=== PATIENT | female | born 1990 | race Native Hawaiian/Other Pacific Islander ===

== ENCOUNTER 2016-12-17 01:12 | Inpatient (IN) | payer OTHER, MEDICAID ==
[~2016-12-17] VITALS: Ht 175.3 cm; Wt 44.0 kg
[2016-12-17] MEDS ORDERED: Magnesium Hydroxide 10 mL Oral Concentration PO PRN (03:10)
[2016-12-17] MEDS ORDERED: Benzocaine-Menthol Lozenge 2/Pkg PO PRN (03:10)
[2016-12-17] MEDS ORDERED: LORazepam 1 mg Tablet PO PRN ×3 (03:10→15:16)
--- NOTE | 2016-12-17 04:23 | NUR ---
admit note nursing 11-7 this is a 26 year old female who was medically cleared at [facility] where she was evaluated and detained as gravely disabled on 12/16/16 at 2200. has a history of past evaluations and being hospitalized in [facility]. there is a past diagnosis of schizoaffective disorder as well as drug abuse. was at [facility] crisis treatment seeking detox admission and they felt she needed mental health treatment. she arrived to this unit at 0255 by stretcher with security. presented as disorganized, labile, demanding and histrionic at times. physical assessment- denies any acute medical/physical injury/need and none is apparent. is a/o x3, vs- wnl, all- benzropine, negative at [facility], positive for hep c and mrsa, ht- 59" wt- 97 lbs. has some minor scabs on her face and is rather disheveled in appearance. completed most of the admission process before becoming overstimulated and demanding medication. agreed to no self harm, was searched and oriented to room 229. received a snack and 2 mg of ativan po per her request, declining other offered medication. went to bed at 0330 and has appeared to sleep after 0345. dylan Addendum: 12/17/16 at 0530 by ROBEL MAHONEY RN patient was heard to be yelling in her room at 0450. appeared to have had a nightmare without awakening and returned to sleeping calmly. dylan
--- NOTE | 2016-12-17 04:29 | NUR ---
Arrived to unit at 300. Pt very disorganized, labile with flat affect, and jerky moments. Asleep at 345. Pt observed every 15 minutes as ordered.
[2016-12-17] MEDS ORDERED: Haloperidol 5 mg/mL Inj IM PRN (11:55)
--- NOTE | 2016-12-17 12:39 | HP ---
[address] [address] HISTORY AND PHYSICAL PATIENT: VIDA HOFFMAN : 1990 MR#: [id number] ADMIT: 12/17/2016 JOB ID: [id number] IDENTIFICATION: The patient is a 27-year-old single female. She is currently unemployed and living in [facility]. REASON FOR ADMISSION: Client was placed on a 72-hour involuntary treatment hold for grave disability at [facility] for symptoms of psychosis and disorganized thought. HISTORY OF PRESENT ILLNESS: The patient presents today for evaluation and treatment of psychosis. She is complaining of anxiety but is unaware of the psychotic symptoms. I met with her for a brief evaluation and reviewed course and records kept by both [facility] ER as well as [facility] staff. Her main issue at this time is methamphetamine abuse and the resultant psychotic and paranoid symptoms that resulted. Co-occurring issues are homelessness and lack of finances. The patient is a poor historian and I am unable to identify the degree of chronicity or acuteness to her current episode. It appears that she presented to a detox unit on [facility] wanting help sobering up and was so psychotic they sent her to the emergency department. She is currently having symptoms of responding to internal stimuli, paranoid delusions, and somatic delusions (she feels that she is "double "). She also has symptoms of severe disorganized thought and thought lability. She is currently presenting with marked emotional liability, significant cognitive deficits, and severe impairment in judgment, insight, coping, and reality testing. PAST MEDICAL HISTORY: MEDICATIONS: None. ALLERGIES: COGENTIN. ILLNESSES: Hepatitis C. FAMILY MEDICAL HISTORY: Client would not respond. PAST PSYCHIATRIC HISTORY: Client said that she has been hospitalized multiple times in [facility] on the psychiatric unit. PSYCHOSOCIAL HISTORY: Client refused to answer social questions related to , history of trauma. She did state she does not use IV meth; she smokes on a daily basis. She denied suicidal ideation or homicidal ideation. RELATIONSHIP HISTORY: Single. Client states she has 40 children. LEGAL HISTORY: Client denies. PHYSICAL EXAMINATION: Reviewed from [facility] and essentially normal. NEUROLOGICAL EXAMINATION: Normal gait. Normal balance. Oriented to person, place, and date. MENTAL STATUS EXAMINATION: Client disheveled, frail, and thin. She has poor eye contact. Her behavior is lethargic and withdrawn. Attitude: Detached and aloof. Speech: Soft, monotone one-word responses. Mood: Dysphoric. Affect: Congruent, with a recent history of severe liability but at present flat and restricted. Thought process: Client is not able to relate a coherent history. She is unable to appreciate simple or complex abstractions. She appears to be responding to internal stimuli. Thought content: Significant for multiple delusions of a paranoid and somatic nature. Client was sedated but was oriented to person, place, and date. I was unable to test memory or attention. Severe impairment in insight, judgment, impulse control, reality testing, and competence to handle current stressors. LABORATORY: Urine negative. Urine drug screen positive for meth. CBC normal. Liver, electrolytes, thyroid significant for ALT elevated on December 13 at 433 and elevated on December 15, 2016 at 776. AST elevated at 304 on December 13, elevated at 438 on December 15, 2016. She is positive for hepatitis C. IMPRESSION: The patient is a 26-year-old white female who was transferred on an involuntary treatment hold from [facility] after what appears to be a methamphetamine binge. Although she denies IV drug use, she is positive for hepatitis C and has significant elevation in her liver function. She herself is a poor historian due to acute withdrawal from methamphetamine as her urine tox was positive. At this time she is appearing to respond to internal stimuli, has delusions of a paranoid and somatic nature, and is presenting as genuinely labile and disorganized when not overtly sedated. Will need to get more history as the client clears. In the meantime, we will provide a safe and secure environment and try to help restore her thought process. DIAGNOSIS: [place] I: Substance-induced psychotic disorder, methamphetamine. Rule out bipolar mood disorder. Rule out schizophrenia. [place] II: Unknown. [place] III: 1. Hepatitis C positive antigen. 2. Severely elevated liver function tests. [place] IV: Unknown. [place] V: Current Global Assessment of Functioning equal to 25. PLAN: Recommend client be admitted to our unit and be provided with a high degree of safety through the structure and active adult engagement she will receive here. We will have her participate in one-to-one, unit, and group activities focused on improving coping skills and reality based thinking. We will also educate the client about a 12-step program and path to sobriety. Will offer client Seroquel 100 mg h.s. to help with psychotic symptoms and sleep. Will offer p.r.n. trazodone and Ativan as needed. We will recheck liver function tests and consider consult by Internal Medicine if liver function does not improve with hydration, rest, and absence of toxins over the next several days. Anticipate a three-day stay.
[2016-12-17] MEDS: hydrOXYzine Pamoate 25 mg Capsule PO PRN (13:20)
[2016-12-17] MEDS: LORazepam 0.5 mg Tablet PO PRN (13:20)
--- NOTE | 2016-12-17 14:22 | NUR ---
Nursing Day Shift- S- "Can I get more Ativan? What about Temazepam? Do you have Adderall? Yea...I'll take Haldol. I've taken it before. When will the Dr. get me Temazepam? It helps me relax." (At 1300 today.) O- Pt. was asleep from the start of the day shift until just after lunch. She eat 2 bowls of soup and part of a sandwich, then asked for Ativan PRN. 0.5 mg was given at that time. Pt. requested a larger dose. When it was not available, she agreed to Haldol 10 mg. Pt. appears jittery and internally preoccupied with superficial sores on her face, and healed sores on her arms. Her hair was tangled and matted. Pt. was able to confirm her location and place a call to someone she identified as her father, she then showered and applied cream rinse to her hair. She was overheard saying that she would like to get back to drug treatment. Pt. was able to contract for safety on the unit. A- Poor hygiene, slender, sores that appear consistent with heavy Methamphetamine use. Eating and seeking out medications. P- Obtain additional background information.Monitor and suport. Cont. TP
--- NOTE | 2016-12-17 18:28 | NUR ---
[facility] Day Shift Pt maintained behavioral control throughout the shift. Pt affect appears mostly flat. Pt spends most of the shift resting in her room, only entering the dining room in the afternoon to eat lunch, obtain snacks, request medicine, and make phone calls. Pt is appropriate with staff and peers when active on the unit, but is not social. Pt did not attend community meeting or group activities throughout the shift. Pt did not attend breakfast. Pt attended lunch and dinner and ate approx 100% of both meals.
--- NOTE | 2016-12-18 05:21 | NUR ---
nursing, nights, 11-7 s/o- has appeared to sleep after 2129 during q 15 minute assessments. a- no apparent distress. p- monitor behavior/emotional state, quality, times and amount of sleep, use and effect of medication. dylan
[2016-12-18] MEDS: LORazepam 0.5 mg Tablet PO PRN (10:07)
[2016-12-18] MEDS: hydrOXYzine Pamoate 25 mg Capsule PO PRN (10:08)
[2016-12-18 11:49] VITALS: BP 105/60; PULSE 58; RESP 12
[2016-12-18 14:09] LABS: Bilirubin, Direct 0.2 mg/dL (0.0-0.3)
--- NOTE | 2016-12-18 14:17 | NUR ---
NUTRITION ASSESSMENT: ASSESS:26 YO female admitted with methamphetamine abuse and the resultant psychotic and paranoid symptoms that resulted. Co-occurring issues are homelessness and lack of finances. The patient is 97 pounds, BMI 14.0 kg/m2. Fortunately she is eating 100% trays so far this admission. PMHx:Hep C, polysubstance abuse. DIET:General. PO intake 100% trays. LABS: Reviewed. AST 220, ALT 597, Alk Phos 151, Alb 3.6. MEDICATIONS: Reviewed. NUTRITION FOCUSED PHYSICAL ASSESSMENT: GI symptoms / stool: Unknown.[place]: Unknown Skin Integrity: No issues reported. ANTHROPOMETRICS: Current Wt: 43.998 kgBMI: 14.0 kg/m2. IBW: 65.9 kg (66.8% IBW) ESTIMATED NEEDS (UNDERWEIGHT): Calories: 1320 - 1550 kcal (30 - 35 kcal / kg BW) Protein: 53 - 66 g protein (1.2 - 1.5 g / kg BW) fluid: Approx. 1540 mL (35 mL / kg BW) NUTRITION DIAGNOSIS: 1)Inadequate oral intake related to inability to consume sufficient energy, as evidenced by current homeless status with lack of finances. INTERVENTION: 1) Will add Ensure to all trays. MONITOR/EVALUATE: Diet tolerance, PO intake, labs, GI/nutrition status. Follow up per moderate nutrition risk guidelines.
--- NOTE | 2016-12-18 14:36 | NUR ---
Nursing Day Shift Patient in room sleeping for much of shift. Did come out for breakfast. Reports anxiety 01/24; denies depression, SI/HI, and hallucinations. PRN Ativan 0.5mg, Haldol 10mg, Visaril 50mg given.
--- NOTE | 2016-12-18 15:50 | PCM.PNPSY ---
Subjective Date of Service Dec 18, 2016 Subjective I spent 20 minutes both reviewing treatment plan and providing supportive/ educational psychotherapy. I spent less than 50% of the time counseling the patient. I attempted to review the treatment plan with the patient and discussed options available including the potential risks, benefits and side effects but she was only minimally invested in the information. Carissa reports a high anxiety and agitation. Staff reports that she has been isolating in her room and not participating well in one-to-one unit or group activities. She slept 8.5 hours and denies manic or psychotic symptoms review. She denies medication side effects. Patient was able to identify her medications and what they were used to treat. She appeared to understand the need for medications by the questions she asked during our discussion. Current Medications Current Medications Haloperidol 10 mg Q4H PRN PO Last administered on 12/17/16 13:51; Admin Dose 10 MG; Start 12/17/16 at 11:55; Stop 12/17/16 at 14:46; Status DC Haloperidol 10 mg Q4H PRN PO Last administered on 12/18/16 10:08; Admin Dose 10 MG; Start 12/17/16 at 14:46 Hydroxyzine Pamoate 50 mg Q4H PRN PO Last administered on 12/18/16 10:08; Admin Dose 50 MG; Start 12/17/16 at 03:10 Lorazepam 0.5 mg Q4H PRN PO Last administered on 12/18/16 10:07; Admin Dose 0.5 MG; Start 12/17/16 at 13:10 Lorazepam 1-2MG Q4H PRN PO Last administered on 12/17/16 03:22; Admin Dose 2 MG ; Start 12/17/16 at 03:16; Stop 12/17/16 at 11:59; Status DC Nicotine 1 patch DAILY TOPICAL Last administered on 12/18/16 10:07; Admin Dose 1 PATCH; Start 12/17/16 at 08:30 Quetiapine Fumarate 100 mg HS PO Last administered on 12/17/16 20:27; Admin Dose 100 MG; Start 12/17/16 at 21:00 Trazodone HCl 50 mg HS PRN PO Last administered on 12/17/16 20:27; Admin Dose 50 MG; Start 12/17/16 at 03:10 Mental Status Exam Vital Signs Vital Signs Date Time Temp Pulse Resp B/P Pulse Ox O2 Delivery O2 Flow Rate FiO2 12/18/16 11:49 36.7 58 12 105/60 Appearance: Disheveled Attitude: Uncooperative Behavior: Distractible Affect: Restricted, Blunted, Flat Mood: Dysthymic Thought Process/Associations: Goal Directed Speech Production: Mumbled Speech Rate: Lags/Latency Speech Articulation: Slurred Thought Content: Negativistic Danger to Self/Suicidal Ideati: None Danger to Others: None Consciousness: Somnolent, Lethargic Orientation: Person, Place, Date, Situation Memory: Untestable Estimate Intellectual Function: Unable to assess Attention/Concentration & Cogn: Impaired Insight: Limited Judgement: Limited Mental Health Plan The patient is a 26-year-old white female who was transferred on an involuntary treatment hold from [facility] after what appears to be a methamphetamine binge. Although she denies IV drug use, she is positive for hepatitis C and has significant elevation in her liver function. She herself is a poor historian due to acute withdrawal from methamphetamine as her urine tox was positive. At this time she is appearing to respond to internal stimuli, has delusions of a paranoid and somatic nature, and is presenting as genuinely labile and disorganized when not overtly sedated. Will need to get more history as the client clears. In the meantime, we will provide a safe and secure environment and try to help restore her thought process Peers to be making slow but gradual progress as she recovers from her recent methamphetamine Binge. [place] I: Substance-induced psychotic disorder, methamphetamine. Rule out bipolar mood disorder. Rule out schizophrenia. [place] II: Unknown. [place] III: 1. Hepatitis C positive antigen. 2. Severely elevated liver function tests. [place] IV: Unknown. [place] V: Current Global Assessment of Functioning equal to 25. Medications Medications to address General Physical Health Treatments Patient is being provided with a high degree of safety through the structure and active adult engagement. We will focus on developing improved coping skills and identifying stressors that may have led to current episode. We will attempt to: Integrate into therapeutic groups, milieu and individual therapy. Maintain in a closely monitored and structured unit Provide low-stimulation environment Obtain collateral data to assist in treatment planning Assess degree of lability of affect and impulse control Complete safety plan Establish a consistent sleep pattern Medication effective in stabilization of mood and/or thought process Reduce the risk of imminent harm to self and/or others by providing a safe environment Tolerates medication without side effects Patient will be on the following psychiatric medications: Seroquel 100 mg at bedtime Labs: Education: Educate patient about recreational drug use as an etiology Address patient's legal status Patient is on a 72 hour involuntary treatment hold. Patient will be given the opportunity to talk to her cigar making supervisor and the retail sales associate bilingual on Tuesday Hammad Broderick MD Dec 18, 2016 15:50
--- NOTE | 2016-12-18 21:28 | NUR ---
OBSERVATIONS 0900 TO 2130 Pt spent entire shift in bed, sleeping off and on. Pt came out of room for meals well after all other pts had finished eating. Maintained Q15 safety checks as directed.
--- NOTE | 2016-12-19 02:51 | NUR ---
Nursing Note- Pantry Cook 7pm to 7am Pt asleep when this fiction writer arrived on shift, brought pt HS meds, she was arousable, very disheveled, with matted hair, and disoriented to time. Pt asked for dinner which she missed but got up and ate. Pt guarded with latent speech. Ate quickly and returned to bed. In no acute distress. Pt appears unmotivated and has been isolating since admission. monitoring ongoing. Addendum: 12/19/16 at 0507 by ROLDAN FENTON RN Pt has been asleep since 2144. in no acute distress. Pt slept approx 7.25 hours. monitoring q 15 minutes for safety location and accountability
[2016-12-19 09:35] VITALS: BP 114/68; PULSE 104; RESP 16
[2016-12-19] MEDS: LORazepam 0.5 mg Tablet PO PRN ×2 (11:10→15:02)
--- NOTE | 2016-12-19 12:53 | NUR ---
NURSING NOTE [id number] Mood= "tired" Affect= guarded, fatigued, isolative Behavior= lying in bed for much of the shift, resting w/eyes closed. Missed breakfast despite multiple attempts to prompt her to get out of bed, however, did come out an hour after to retrieve it. Also came out for lunch, but then went back to bed after. She is very disheveled, this commercial lines underwriter encouraged her to shower but this was met w/resistance. Thought processes= pt. denies any disturbed thought processes/hallucinations however appears at times to be responding to internal stimuli. She is distracted when this commercial lines underwriter asks her questions, has poor eye contact. She had a verbal outburst and cursed at her MHA when asked if she wanted to take a phone call from her stepfather. Denied SI/HI. Did endorse anxiety and requested a PRN. PRNs 0.5 mg Ativan @ 11:10 Addendum: 12/19/16 at 1512 by ALISSON HARE RN Pt. more awake and alert after 1400. Did eventually take a shower. Pt. making bizarre statements, e.g. "I'm doubly -- it says I'm not but I was before and then I got again so now I'm doubly ... do you get it?" Pt. asked to have her Ativan increased to 1 mg, advised pt. to speak to her doctor re:medication orders. PRN Ativan 0.5 mg and Maalox for upset stomach @ 1500 Addendum: 12/19/16 at 1534 by ALISSON HARE RN [facility] Haldol 10 mg @ 15:30 for psychosis
--- NOTE | 2016-12-19 14:11 | NUR ---
Playback Operator./ c.m. S.:"I'm trying to sleep and you woke me up..." O.: came to pt.'s room right before lunch. Pt. was sleeping and refused to get up. She denied SI/HI. She refused to talk more, refused to work on her Treatment plan and goals. She didn't get up for lunch. She was sleeping in her clothes. A.: pt. is isolative, uncooperative, sleeping a lot, looks disheveled. P.: monitor behavior, monitor for withdrawal; follow care plan.
--- NOTE | 2016-12-19 14:13 | PCM.PNPSY ---
Subjective Date of Service Dec 19, 2016 Subjective I spent 20 minutes both reviewing treatment plan and providing supportive/ educational psychotherapy. I spent less than 50% of the time counseling the patient. I attempted to review the treatment plan with the patient and discussed options available including the potential risks, benefits and side effects but she was only minimally invested in the information. Carissa reports a high anxiety and agitation. Staff reports that she has been isolating in her room and not participating well in one-to-one unit or group activities. She slept 7 hours at night and approximately 7 hours during the day and denies manic or psychotic symptoms review. She denies medication side effects. She is requesting more benzodiazepines even as she is relatively sedated Current Medications Current Medications Haloperidol 10 mg Q4H PRN PO Last administered on 12/18/16 10:08; Admin Dose 10 MG; Start 12/17/16 at 14:46 Quetiapine Fumarate 100 mg HS PO Last administered on 12/18/16 21:06; Admin Dose 100 MG; Start 12/17/16 at 21:00 Mental Status Exam Appearance: Disheveled Attitude: Uncooperative Behavior: Distractible Affect: Restricted, Blunted, Flat Mood: Dysthymic Thought Process/Associations: Goal Directed Speech Production: Mumbled Speech Rate: Lags/Latency Speech Articulation: Slurred Thought Content: Negativistic Danger to Self/Suicidal Ideati: None Danger to Others: None Consciousness: Somnolent, Lethargic Orientation: Person, Place, Date, Situation Memory: Untestable Estimate Intellectual Function: Unable to assess Attention/Concentration & Cogn: Impaired Insight: Limited Judgement: Limited Mental Health Plan The patient is a 26-year-old white female who was transferred on an involuntary treatment hold from [facility] after what appears to be a methamphetamine binge. Although she denies IV drug use, she is positive for hepatitis C and has significant elevation in her liver function. She herself is a poor historian due to acute withdrawal from methamphetamine as her urine tox was positive. At this time she is appearing to respond to internal stimuli, has delusions of a paranoid and somatic nature, and is presenting as genuinely labile and disorganized when not overtly sedated. Will need to get more history as the client clears. In the meantime, we will provide a safe and secure environment and try to help restore her thought process Peers to be making slow but gradual progress as she recovers from her recent methamphetamine Binge. [place] I: Substance-induced psychotic disorder, methamphetamine. Rule out bipolar mood disorder. Rule out schizophrenia. [place] II: Unknown. [place] III: 1. Hepatitis C positive antigen. 2. Severely elevated liver function tests. [place] IV: Unknown. [place] V: Current Global Assessment of Functioning equal to 35. Medications Medications to address General Physical Health Treatments Patient is being provided with a high degree of safety through the structure and active adult engagement. We will focus on developing improved coping skills and identifying stressors that may have led to current episode. We will attempt to: Integrate into therapeutic groups, milieu and individual therapy. Maintain in a closely monitored and structured unit Provide low-stimulation environment Obtain collateral data to assist in treatment planning Assess degree of lability of affect and impulse control Complete safety plan Establish a consistent sleep pattern Medication effective in stabilization of mood and/or thought process Reduce the risk of imminent harm to self and/or others by providing a safe environment Tolerates medication without side effects Patient will be on the following psychiatric medications: Seroquel 100 mg at bedtime Labs: Education: Educate patient about recreational drug use as an etiology Address patient's legal status Patient is on a 72 hour involuntary treatment hold. Patient will be given the opportunity to talk to her hydroelectric plant operator and the child care attendant on Tuesday Hammad Broderick MD Dec 19, 2016 14:12
[2016-12-19] MEDS: Alum-Mag Hydrox-Simeth 30 mL Suspension PO PRN (15:02)
--- NOTE | 2016-12-19 20:42 | NUR ---
Observations 0900 to 2130 Pt affect and mood was labile, anxious and isolative. Pt did not attend community meeting. Pt did not attend groups or unit activities. Pt speech and eye contact was ok. Pt was minimally social with staff and select peers when approached. Pt attended meals in D.R. and ate 100% of his meals. Pt maintained behavior throughout the shift. Pt was polite, pleasant and cooperative. Pt was in his room and in bed during free time. Pt took a shower and attended to ADL's but still appears disheveled. Pt asked several times if she could be transferred to [facility], when asked why she stated "I've been there before and you can smoke there" Pt was observed every 15 minutes throughout the shift as ordered. Pt is currently asleep in bed, respirations apparent.
--- NOTE | 2016-12-20 04:47 | NUR ---
NURS NOC 12H Mood: unable to assess, pt sleeping Affect: blunted Behavior: Pt in isolate in most of shift. Pt slept 1815 to present Thought Process: unable to assess, pt sleeping Nursing Note/PRN: trazodone 50 mg.
[2016-12-20] MEDS: LORazepam 0.5 mg Tablet PO PRN ×2 (09:03→13:02)
[2016-12-20 10:53] LABS: BASOPHILS % (AUTO) 0.5 % (0-3); EOSINOPHILS % (AUTO) 6.2 % (0-5); MONOCYTES % (AUTO) 7.7 % (4-12); Mean Corpuscular Hemoglobin 27.2 pg (27.0-35.0); Mean Corpuscular Volume 82.6 fL (81-100); NEUTROPHILS % (AUTO) 57.6 % (40-74); Platelet Count 290 bil/L (150-400)
[2016-12-20 15:38] VITALS: BP 117/78; PULSE 120; RESP 16
--- NOTE | 2016-12-20 16:05 | PCM.PNPSY ---
Subjective Date of Service Dec 20, 2016 Subjective The patient states that she is "good today, can I go up on my Ativan?" The patient responded to questions as "I don't know" to why she was in the hospital or what symptoms she might be having. She stated that she was homeless and would like help with housing. She became increasingly irritable as the interview progressed and he was terminated early. She denied side effects. Sleep: 11+ hours Appetite: "Good" Suicidal and homicidal ideation: Denies Auditory hallucinations/Visual hallucinations: Denies Other Psychotic Symptoms: Irritable with poverty of speech Anxiety: "I do not know" Depression: "No" Mental Status Exam Vital Signs Vital Signs Date Time Temp Pulse Resp B/P Pulse Ox O2 Delivery O2 Flow Rate FiO2 12/20/16 15:38 36.4 120 16 117/78 Appearance: Disheveled Attitude: Uncooperative Behavior: Distractible Affect: Restricted, Labile Mood: Irritable, Anxious Thought Process/Associations: Blocking Speech Production: Mumbled Speech Rate: Lags/Latency Speech Articulation: Slurred Thought Content: Negativistic Danger to Self/Suicidal Ideati: None Danger to Others: None Hallucinations: Auditory (Denies), Visual (Denies) Consciousness: Somnolent, Lethargic Orientation: Person, Place, Date, Situation Memory: Untestable Estimate Intellectual Function: Unable to assess Attention/Concentration & Cogn: Impaired Insight: Limited Judgement: Limited Result Diagram: 12/20/16 1040 12/20/16 1040 Mental Health Plan The patient is a 26-year-old white female who was transferred on an involuntary treatment hold from [facility] after what appears to be a methamphetamine binge. Although she denies IV drug use, she is positive for hepatitis C and has significant elevation in her liver function. She herself is a poor historian due to acute withdrawal from methamphetamine as her urine tox was positive. At the time of admission she was appearing to respond to internal stimuli, has delusions of a paranoid and somatic nature, and was presenting as labile and disorganized when not overtly sedated. The patient is now less irritable but remains generally uncooperative with the exam. The patient states she would prefer to have 1 mg lorazepam every 6 hours as opposed to a half milligram every 4 hours. 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 schizophrenia. [place] II: Deferred [place] III: 1. Hepatitis C positive antigen. 2. Severely elevated liver function tests. [place] IV: Unknown. [place] V: Current Global Assessment of Functioning equal to 30. Medications Quetiapine 100 mg at bedtime Haloperidol 10 mg every 4 hours when necessary agitation or psychosis Lorazepam 0.5 mg every 4 hours when necessary anxiety or agitation Treatments 1. The patient is admitted to the inpatient unit and will be provided a safe and secure environment. 2. The patient is denying current active suicidality and is not in need of a one-to-one at this time. 3. The patient is encouraged to participate with group and milieu activities. 4. The patient will be seen by the treatment team on a daily basis to assess symptoms, side effects and response to treatment. 5. The patient will be continued on quetiapine 100 mg nightly for psychosis. 6. Discontinue haloperidol. 7. Quetiapine 100 mg every 6 hours when necessary psychotic agitation. 8. Discontinue lorazepam. 9. Anticipated length of stay is 7-10 days. Aly Dominguez MD Dec 20, 2016 16:04 Seroquel 100 mg at bedtime Labs: Education: Educate patient about recreational drug use as an etiology Address patient's legal status Patient is on a 72 hour involuntary treatment hold. Patient will be given the opportunity to talk to her criminal lawyer and the employment specialist/program manager on Tuesday Aly Dominguez MD Dec 20, 2016 16:04
--- NOTE | 2016-12-20 16:51 | NUR ---
Cone Picker./c.m. S.:"Doing good. Can you go up on Ativan?" O.: met with pt. and MD together in pt.'s room. She was in bed sleeping later in the morning. She denied SI/HI, denied AH/VH, denied depression. She "didn't know" if she had anxiety or not. She insisted in getting higher dose of Ativan. She "didn't know" why she was here. Marshmallow Machine Worker called [facility] and [facility] but there was no bed available today. Both hospitals asked for 14 MRO and a changing venue in pt.'s legal paper in order to accept her. [facility] asked to call tomorrow after court hearing for admission screening. Pt. spent most of the time in her room in bed sleeping. A.: pt. is isolative, easily agitated, has poor inside. She has poor eye contact and looks disheveled. P.: monitor behavior, court tomorrow; follow care plan.
--- NOTE | 2016-12-20 17:05 | NUR ---
nursing note 7am-7pm S)"can I have my haldol and ativan" O)pt in room most of shift, came out for meals, did take shower, left soiled underwear in shower with menses but refused hygiene products, hair matted, did not want to engage in conversation with this contract writer A) guarded, makes requests appropriately, cooperative, isolates P)monitor medication effectiveness, encourage participation in treatment
[2016-12-20] MEDS: LORazepam 1 mg Tablet PO PRN (17:49)
--- NOTE | 2016-12-20 18:59 | NUR ---
Observations [id number] Pt was asleep upon start of shift. She continues to sleep much of the day, getting up to attend meals. Pt continues to appear very disoriented and uncertain as to why she is here. Pt was read court paperwork by this sports book writer, and she stated "I don't remember doing those things or saying those things." After going over the paperwork, pt was still unsure as to why she is here. She presented with a large appetite, attending meals and snacks. She took a shower and interacted with peers when approached, but does not go out of her way to start conversation. Pt was observed every 15 minutes of shift as directed.
[2016-12-20 21:13] VITALS: BP 99/68; PULSE 100
--- NOTE | 2016-12-20 21:13 | NUR ---
Sedated S: Pt is difficult to arouse. Turned all lights on and shouted with tactile stimuli. After 2-3 minutes patient arouse. I: Pt sat up in bed with eyes closed. Non verbal. BP and HR taken (99/68 and 100bpm) E: Will cont to evaluate behavior/cognition
--- NOTE | 2016-12-21 02:26 | NUR ---
Observations 1900 to 0700 Pt was in her room when my shift started and has remained there for the entire night. Pt first appeared asleep at 21:30 and was observed every 15 minutes through the night as directed.
[2016-12-21] MEDS: LORazepam 1 mg Tablet PO PRN ×3 (08:06→20:19)
[2016-12-21] MEDS: hydrOXYzine Pamoate 25 mg Capsule PO PRN ×4 (09:57→22:52)
--- NOTE | 2016-12-21 13:34 | NUR ---
[employer] Coxswain./ c.m. S.:"How long will it take? Can I get more Ativan? I know I'm , actually double ." O.: met with pt. and MD together in pt.'s room. She was in bed resting. She made all demands and comments above right away after MD and technical publications writer came into her room, She wanted to be transferred to [place] - "I like it there". She wanted to be transferred now. MD and technical publications writer tried to explain her that it was a process that takes time. Pt. has difficulty understanding a concept of waiting. She denied SI/HI, denied AH/VH. She slept "good" last night. She said that her "anxiety is high" but she couldn't rate it. She couldn't tell if she was depressed or not. Barrel Plater called [facility] and spoke with Ana from admission office. All clinical information was faxed to admission office per her request. [facility] staff is familiar with this pt. and there is a bed available. Ana will call technical publications writer back after making her assessment. A.: pt. is isolative, demanding, has a short attention, scattered, meds seeking. She is easily agitated and looks disheveled. P.: monitor behavior, work on transfer, follow care plan.
--- NOTE | 2016-12-21 13:53 | NUR ---
Nursing 7-3- Patient became increasingly anxious, stating, "I am going to have a panic attack. I need to go to the ER." Asking for meds for anxiety, even for meds that aren't ordered. She has been up to desk asking the same questions about wanting to go to [place] despite given explanations that calls have been made. Pacing in dining area and attended meals. Showered and changed into clean clothes.
[2016-12-21 14:23] VITALS: BP 114/73; PULSE 128; RESP 16
[2016-12-21] MEDS: Alum-Mag Hydrox-Simeth 30 mL Suspension PO PRN (15:42)
--- NOTE | 2016-12-21 15:42 | NUR ---
Nurses PRN Patient received Ibuprofen 600mg and Mylanta 30cc for c/o pain and abdominal discomfort,will assess response.
--- NOTE | 2016-12-21 20:44 | NUR ---
Obs Dayshift Pt is demanding, restless, staff splitting, easily irritable and loud. Pt has poor ADL's, over eating, and often asking for staff to get meds for her. Pt is not attending groups, engages w/ peers. Pt was having another peer sit on her and rub her back, upset when staff asked her to stop. Pt is very preoccupied about being transferred to [place]. Perseverating, not appropriate.
[2016-12-21] MEDS ORDERED: cloNIDine 0.1 mg Tablet ONE (22:24)
--- NOTE | 2016-12-21 22:37 | PCM.PNPSY ---
Subjective Date of Service Dec 21, 2016 Subjective The patient agreed to 14 day order and would prefer transfer to [facility]. Patient reporting that she has a "double " i.e. one following the other , unclear whether she believes they are co-occurring. She reports that she believes she will need two tests. Patient requesting increase in lorazepam. Patient encouraged to use other medication or self-soothing practice. Sleep: "good" Appetite: "good" Suicidal and homicidal ideation: denies Auditory hallucinations/Visual hallucinations: kyler Other Psychotic Symptoms: delusions as above Anxiety: "zaire high" Depression: "okay." Current Medications Current Medications Lorazepam 1 mg Q6 PRN PO Last administered on 12/21/16 20:19; Admin Dose 1 MG; Start 12/20/16 at 16:10 Quetiapine Fumarate 100 mg Q6 PRN PO Last administered on 12/21/16 22:14; Admin Dose 100 MG; Start 12/20/16 at 16:05 Quetiapine Fumarate 200 mg HS PO Last administered on 12/21/16 20:18; Admin Dose 200 MG; Start 12/21/16 at 21:00 Mental Status Exam Appearance: Disheveled Attitude: Uncooperative Behavior: Distractible Affect: Restricted Mood: Irritable, Anxious Speech Production: Mumbled Speech Rate: Lags/Latency Speech Articulation: Slurred Thought Content: Negativistic Danger to Self/Suicidal Ideati: None Danger to Others: None Hallucinations: Auditory (Denies), Visual (Denies) Consciousness: Somnolent, Lethargic Orientation: Person, Place, Date, Situation Memory: Untestable Estimate Intellectual Function: Unable to assess Attention/Concentration & Cogn: Impaired Insight: Limited Judgement: Limited Result Diagram: 12/20/16 1040 12/20/16 1040 Mental Health Plan The patient is a 26-year-old white female who was transferred on an involuntary treatment hold from [facility] after what appears to be a methamphetamine binge. Although she denies IV drug use, she is positive for hepatitis C and has significant elevation in her liver function. She herself is a poor historian due to acute withdrawal from methamphetamine as her urine tox was positive. At the time of admission she was appearing to respond to internal stimuli, has delusions of a paranoid and somatic nature, and was presenting as labile and disorganized when not overtly sedated. The patient is now less irritable but remains generally uncooperative with the exam. The patient continues to report delusional beliefs and elevated anxiety. 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 schizophrenia. [place] II: Deferred [place] III: 1. Hepatitis C positive antigen. 2. Severely elevated liver function tests. [place] IV: Unknown. [place] V: Current Global Assessment of Functioning equal to 25. Medications Quetiapine 100 mg at bedtime Quetiapine 100 mg every 6 hours when necessary agitation or psychosis Lorazepam1 mg every 6 hours when necessary anxiety or agitation Treatments 1. The patient is admitted to the inpatient unit and will be provided a safe and secure environment. 2. The patient is denying current active suicidality and is not in need of a one-to-one at this time. 3. The patient is encouraged to participate with group and milieu activities. 4. The patient will be seen by the treatment team on a daily basis to assess symptoms, side effects and response to treatment. 5. Quetiapine will be increased to 200 mg nightly for psychosis. 6. Check follow-up urine test. 7. Quetiapine 100 mg every 6 hours when necessary psychotic agitation. 8. Anticipated length of stay is 7-10 days. 9. Patient will be transferred when in-network bed available and patient accepted. Aly Dominguez MD Dec 21, 2016 22:37
[2016-12-21] MEDS ORDERED: cloNIDine 0.1 mg Tablet PO PRN (22:45)
--- NOTE | 2016-12-21 23:58 | NUR ---
Nurses Note Evening Patient remains demanding oppositional concerning additional medications every couple of hours.Patient has difficulty following unit policy and procedures. Will maintain q 15min. checks for safety and support.
[2016-12-22] MEDS: LORazepam 1 mg Tablet PO PRN ×2 (00:27→08:17)
--- NOTE | 2016-12-22 01:33 | NUR ---
Observations 1900 to 0700 Pt was out and about more than usual last night. Pt first appeared asleep at 21:30 and was observed every 15 minutes through the night as directed.
--- NOTE | 2016-12-22 05:30 | NUR ---
Sleep 11p-7a Pt awake at beginning of shift distressed and tearful stating "I am withdrawing off of Haldol! Call the doctor! I need to go to the ER! I need more medicine!" Pt offered and accepted Ativan 1mg po prn for lability & Tylenol 650mg po prn for generalized pain and discomfort @ 0027. Pt received a snack and retired to bed. She appeared asleep by 0045 with no further distress or awakening per protocol checks. Provide support and reassurance as needed. Total sleep 4.5 + hours.
--- NOTE | 2016-12-22 08:01 | NUR ---
NUTRITION FOLLOW-UP: ASSESS:26 YO female admitted with methamphetamine abuse and the resultant psychotic and paranoid symptoms that resulted. Co-occurring issues are homelessness and lack of finances. The patient is 97 pounds, BMI 14.0 kg/m2. Fortunately she is eating 100%, even to the point of over-eating, per nursing report. PMHx:Hep C, polysubstance abuse. DIET:General. PO intake 100% trays. LABS: Reviewed. Cr 0.35, Glu 127, AST 69, ALT 321, Alb 2.7. MEDICATIONS: Reviewed. NUTRITION FOCUSED PHYSICAL ASSESSMENT: GI symptoms / stool: Unknown.[place]: Unknown Skin Integrity: No issues reported. ANTHROPOMETRICS: Current Wt: 43.998 kgBMI: 14.0 kg/m2. IBW: 65.9 kg (66.8% IBW) ESTIMATED NEEDS (UNDERWEIGHT): Calories: 1320 - 1550 kcal (30 - 35 kcal / kg BW) Protein: 53 - 66 g protein (1.2 - 1.5 g / kg BW) fluid: Approx. 1540 mL (35 mL / kg BW) NUTRITION DIAGNOSIS: 1)Inadequate oral intake related to inability to consume sufficient energy, as evidenced by current homeless status with lack of finances - IMPROVED WITH ADMISSION. INTERVENTION: 1) Will continue Ensure on trays. MONITOR/EVALUATE: Diet tolerance, PO intake, labs, GI/nutrition status. Follow up per moderate nutrition risk guidelines.
[2016-12-22 08:41] LABS: BASOPHILS % (AUTO) 0.5 % (0-3); EOSINOPHILS % (AUTO) 10.4 % (0-5); MONOCYTES % (AUTO) 9.4 % (4-12); Mean Corpuscular Hemoglobin 27.3 pg (27.0-35.0); Mean Corpuscular Volume 83.6 fL (81-100); NEUTROPHILS % (AUTO) 45.5 % (40-74); Platelet Count 309 bil/L (150-400)
[2016-12-22] MEDS: hydrOXYzine Pamoate 25 mg Capsule PO PRN ×2 (10:37→13:39)
[2016-12-22 10:38] VITALS: BP 88/55; PULSE 99; RESP 14
[2016-12-22] MEDS ORDERED: LORazepam 1 mg Tablet PO PRN (12:00)
--- NOTE | 2016-12-22 12:37 | PCM.DC.MED ---
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 [place] II: Deferred [place] III: 1. Hepatitis C positive antigen. 2. Severely elevated liver function tests, returning to normal. [place] IV: Unknown. [place] V: Current Global Assessment of Functioning equal to 30. Brief History Per Dr. Broderick's initial H&P on 12/17/16 IDENTIFICATION: The patient is a 27-year-old single female. She is currently unemployed and living in [facility]. REASON FOR ADMISSION: Client was placed on a 72-hour involuntary treatment hold for grave disability at [facility] for symptoms of psychosis and disorganized thought. HISTORY OF PRESENT ILLNESS: The patient presents today for evaluation and treatment of psychosis. She is complaining of anxiety but is unaware of the psychotic symptoms. I met with her for a brief evaluation and reviewed course and records kept by both [facility] as well as [facility] staff. Her main issue at this time is methamphetamine abuse and the resultant psychotic and paranoid symptoms that resulted. Co-occurring issues are homelessness and lack of finances. The patient is a poor historian and I am unable to identify the degree of chronicity or acuteness to her current episode. It appears that she presented to a detox unit on [facility] wanting help sobering up and was so psychotic they sent her to the emergency department. She is currently having symptoms of responding to internal stimuli, paranoid delusions, and somatic delusions (she feels that she is "double "). She also has symptoms of severe disorganized thought and thought lability. She is currently presenting with marked emotional liability, significant cognitive deficits, and severe impairment in judgment, insight, coping, and reality testing. Hospital Course At the time of admission she was appearing to respond to internal stimuli, had delusions of a paranoid and somatic nature, and was presenting as labile and disorganized when not overtly sedated. The patient was started on low dose quetiapine 100mg nightly for psychosis, but continued to report having a " double " although being test negative. The patient has been reporting excessive anxiety which she relates to being in charge of the the "[employer]" and the "[place]" and being . In addition to the scheduled quetiapine, she had been receiving additional quetiapine for paranoia for a total of 400mg per day. She had requested increase in lorazepam, but we had been trying to encourage her to use hydroxyzine or quetiapine as appropriate. She had also been using clonidine to address potential withdrawal related symptoms. The patient was requesting transfer to [facility] on her 14 day more restrictive order to better address her treatment needs and discharge plan. [facility] has accepted the patient pending discussion regarding court order and discharge summary receipt. At the time of discharge, the patient was reporting her mood as "anxious." Sleep was reported as "not so good,l" 5.5 hours per staff. Appetite was reported as "good." Her anxiety was reported as 10/10 and depression as "okay. " She denied auditory or visual hallucinations, but endorsed multiple paranoid and grandiose delusions as above. She denied any thought, intent or plan of hurting herself or others. The patient had elevated LFT's on admission which gradually are returning to normal as follows: Date 12/18/16 12/20/16 12/22/16 AST 220 69 29 ALT 597 321 161 Alk Phos 151 137 105 Exam Vital Signs (Last) Date Time Temp Pulse Resp B/P Pulse Ox O2 Delivery O2 Flow Rate FiO2 12/22/16 10:38 36.5 99 14 88/55 Exam Discharge Mental Status Exam Appearance: Disheveled Attitude: Marginally cooperative Behavior: Distractible Affect: Restricted Mood: Irritable, Anxious Speech Production: Mumbled Speech Rate: Normal Speech Articulation: Somewhat slurred Thought Content: Negativistic, paranoid delusions Danger to Self/Suicidal Ideation: None Danger to Others: None Hallucinations: Auditory (Denies), Visual (Denies) Consciousness: Somnolent, Lethargic Orientation: Person, Place, Date, Situation Memory: Impaired Estimate Intellectual Function: Intelligence appears to be in the average range based on history and vocabulary Attention/Concentration & Cognition: Impaired Insight: Limited Judgement: Limited AIMS: negative Test 12/18/16 12:45 12/22/16 08:19 3/8/17 11:29 Direct Bilirubin 0.2mg/dL (0.0-0.3) White Blood Count 7.8th/mm3 (3.8-10.1) Red Blood Count 4.21mil/mm3 (3.90-5.20) Hemoglobin 11.5g/dL (12.0-15.6) Hematocrit 35.2% (35.0-46.0) Mean Corpuscular Volume 83.6fL (81-100) Mean Corpuscular Hemoglobin 27.3pg (27.0-35.0) Mean Corpuscular Hemoglobin Concent 32.7% (32.0-37.0) Red Cell Distribution Width 16.1% (12.3-15.4) Platelet Count 309bil/L (150-400) Neutrophils (%) (Auto) 45.5% (40-74) Lymphocytes (%) (Auto) 33.9% (14-46) Monocytes (%) (Auto) 9.4% (4-12) Eosinophils (%) (Auto) 10.4% (0-5) Basophils (%) (Auto) 0.5% (0-3) Sodium Level 138mEq/L (134-144) Potassium Level 4.6mEq/L (3.5-5.2) Chloride Level 103mEq/L (97-108) Carbon Dioxide Level 22mmol/L (18-29) Blood Urea Nitrogen 17mg/dL (6-20) Creatinine 0.43mg/dL (0.57-1.00) Estimat Glomerular Filtration Rate 258mL/min (>59) Glucose Level 83mg/dL (60-99) Calcium Level 8.8mg/dL (8.5-10.1) Total Bilirubin 0.2mg/dL (0.0-1.2) Aspartate Amino Transf (AST/SGOT) 29U/L (0-50) Alanine Aminotransferase (ALT/SGPT) 161U/L (0-32) Alkaline Phosphatase 105U/L (25-150) Total Protein 6.2g/dL (6.4-8.4) Albumin 3.6g/dL (3.4-5.0) Urine HCG, Qualitative Negative (Negative) Discharge Medications Discharge Medications Nicotine 21 mg/24 hr Patch (Nicotine 21 mg/24 hr Patch) 1 Each Patch.td24 1 PATCH TOPICAL DAILY Prescribed by: LAMAR DOMNIGUEZ MD Quetiapine Fumarate (Quetiapine Fumarate) 100 Mg Tablet 200 MG PO HS Prescribed by: LAMAR DOMINGUEZ MD As needed ([Benzocaine/Menthol]) 2 LOZENGE/PKG LOZG 1 LOZENGE PO Q2H PRN PRN dry mouth Prescribed by: LAMAR DOMINGUEZ MD ([Al Hydrox/Mg Hydrox/Simeth]) 30 ML SUSP 30 ML PO Q6H PRN PRN For Dyspepsia or Heartburn Prescribed by: LAMAR DOMINGUEZ MD Calcium Carbonate (Calcium Carbonate) 200 Mg Tab.chew 500-1,000 MG PO Q6H PRN PRN For Dyspepsia or Heartburn Prescribed by: LAMAR DOMINGUEZ MD Clonidine (Catapres) 0.1 Mg Tablet 0.1 MG PO Q6H PRN PRN AGITATION/RESTLESSNESS Prescribed by: LAMAR DOMINGUEZ MD Hydroxyzine Pamoate (HydrOXYzine Pamoate) 25 Mg Capsule 50 MG PO Q4H PRN PRN anxiety/agitation/insomnia Prescribed by: LAMAR DOMINGUEZ MD Ibuprofen (Ibuprofen) 600 Mg Tablet 600 MG PO Q6H PRN PRN For Pain Prescribed by: LAMAR DOMINGUEZ MD Lorazepam (Ativan) 1 Mg Tablet 1-2 MG PO Q6H PRN PRN For Anxiety or Agitation Prescribed by: LAMAR DOMINGUEZ MD Magnesium Hydroxide (Milk of Magnesia) 2,400 Mg/10 Ml Oral.susp 10 ML PO Q12H PRN PRN For Constipation Prescribed by: LAMAR DOMINGUEZ MD Nicotine Polacrilex (Nicorette) 2 Mg Lozenge 2 MG BUCCAL Q4H PRN PRN For Tobacco Withdrawal Prescribed by: LAMAR DOMINGUEZ MD Quetiapine Fumarate (Quetiapine Fumarate) 100 Mg Tablet 100 MG PO Q6 PRN PRN Psychotic agitation Prescribed by: LAMAR DOMINGUEZ MD Trazodone (Trazodone) 50 Mg Tablet 50 MG PO HS PRN PRN Insomnia Prescribed by: LAMAR DOMINGUEZ MD Followup Plan Disposition: The patient is detained on a 14 day more restrictive order. She has requested to be transferred and has been accepted to [facility] for further stabilization. The patient will likely need an increase in her scheduled quetiapine and possible addition of mood stabilizer. The patient verbally consented to take the prescribed medications. The patient verbally expressed understanding of the risks, benefits, alternative treatment options, and risks of not taking the prescribed medication. The patient verbally expressed understanding of the medication instructions, that she will adhere to the prescribed medication, and that she will go to all aftercare scheduled appointments. Follow-up plan Transfer to [facility] Lamar Dominguez MD Dec 22, 2016 12:37
--- NOTE | 2016-12-22 12:57 | PCM.DIMED ---
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 schizophrenia. [place] II: Deferred [place] III: 1. Hepatitis C positive antigen. 2. Severely elevated liver function tests, returning to normal. [place] IV: Unknown. [place] V: Current Global Assessment of Functioning equal to 30. Test Results CBC Test 12/22/16 08:19 White Blood Count 7.8th/mm3 (3.8-10.1) Red Blood Count 4.21mil/mm3 (3.90-5.20) Hemoglobin 11.5g/dL (12.0-15.6) Hematocrit 35.2% (35.0-46.0) Mean Corpuscular Volume 83.6fL (81-100) Mean Corpuscular Hemoglobin 27.3pg (27.0-35.0) Mean Corpuscular Hemoglobin Concent 32.7% (32.0-37.0) Red Cell Distribution Width 16.1% (12.3-15.4) Platelet Count 309bil/L (150-400) Neutrophils (%) (Auto) 45.5% (40-74) Lymphocytes (%) (Auto) 33.9% (14-46) Monocytes (%) (Auto) 9.4% (4-12) Eosinophils (%) (Auto) 10.4% (0-5) Basophils (%) (Auto) 0.5% (0-3) CMP Test 12/18/16 12:45 12/22/16 08:19 Direct Bilirubin 0.2mg/dL Sodium Level 138mEq/L Potassium Level 4.6mEq/L Chloride Level 103mEq/L Carbon Dioxide Level 22mmol/L Blood Urea Nitrogen 17mg/dL Creatinine 0.43mg/dL Estimat Glomerular Filtration Rate 258mL/min Glucose Level 83mg/dL Calcium Level 8.8mg/dL Total Bilirubin 0.2mg/dL Aspartate Amino Transf (AST/SGOT) 29U/L Alanine Aminotransferase (ALT/SGPT) 161U/L Alkaline Phosphatase 105U/L Total Protein 6.2g/dL Albumin 3.6g/dL Diet No restrictions Activity No restrictions Patient Instructions Should you have any thoughts of harming yourself or others, please call the crisis line, your provider, 911, or go to the nearest Emergency Department. Do not change or discontinue your medications without discussing with your provider. Follow-up plan Transfer to [facility] Aly Dominguez MD Dec 22, 2016 12:57
[2016-12-22] MEDS ORDERED: Benzocaine/Menthol PO (13:03)
[2016-12-22] MEDS ORDERED: NICO2LOZ47 BUCCAL (13:03)
[2016-12-22] MEDS ORDERED: CALC500T53 PO (13:03)
[2016-12-22] MEDS ORDERED: QUET100T69 PO ×2 (13:03)
[2016-12-22] MEDS ORDERED: IBUP-1827 PO (13:03)
[2016-12-22] MEDS ORDERED: NICO1PAT6 TOPICAL (13:03)
[2016-12-22] MEDS ORDERED: MAGN800O PO (13:03)
[2016-12-22] MEDS ORDERED: CLON0.1T14 PO (13:03)
[2016-12-22] MEDS ORDERED: TRAZ-115 PO (13:03)
[2016-12-22] MEDS ORDERED: Al Hydrox/Mg Hydrox/Simeth PO (13:03)
[2016-12-22] MEDS ORDERED: LORA-303 PO (13:03)
[2016-12-22] MEDS ORDERED: HYDR-3797 PO (13:03)
[2016-12-22] MEDS ORDERED: LORazepam 2 mg Tablet PO ONE (14:55)
--- NOTE | 2016-12-22 15:51 | NUR ---
Nursing Transfer to [place]: Patient left the unit at 1545 on a gurney escorted by [facility]. Cooperative with EMS and being secured to the gurney. Received Ativan 2 mg PO prior to leaving per one time order. Has been demanding with requests for prns "can you get me some Klonopin? Ask the doctor." "Can I get more Vistaril?" Ate well at meals plus numerous snacks. Chuckling when leaving the unit with EMS.
--- NOTE | 2016-12-22 17:47 | NUR ---
Case Management/Counseling S: "When am I leaving." O: Patient slept 5.5 hours last night. She denies S/I and H/I. She also denies auditory and visual hallucinations. Depression is 2/10 and anxiety is 8/10. When asked her mood, patient stated, "Good." Patient transferred to [place]. A: Patient is cooperative at times, disheveled, restricted affect, irritable, anxious, paranoid, lethargic, limited insight, limited judgement. P: Follow care plan, coordinate transfer to [place].
== END 2016-12-22 15:45 | disposition other institution (70) | DRG 885 ==
LOC: MHC 02:53
PROVIDERS: ADMIT Psychiatry & Neurology Psychiatry; ATTEND Psychiatry & Neurology Psychiatry
DX: F29 Unspecified psychosis not due to a substance or known physiological condition (principal); F15.159 Other stimulant abuse with stimulant-induced psychotic disorder, unspecified; Z59.0 Homelessness; R94.5 Abnormal results of liver function studies; B19.20 Unspecified viral hepatitis C without hepatic coma